=== PATIENT | female | born 1950 | race Caucasian/White ===

== ENCOUNTER 2023-05-03 19:09 | Inpatient (IN) ==
[2023-05-03] MEDS ORDERED: IOPAMIDOL 100 ML BOTTLE IV ONE (19:10)
[2023-05-03] MEDS ORDERED: VANCOMYCIN PER PHARMACY IV ONE (19:46)
[2023-05-03] MEDS ORDERED: cefTRIAXone 1 GM VIAL IV ONE (19:46)
[2023-05-03] MEDS ORDERED: 0.9 % SODIUM CHLORIDE 1,000 ML IV ONE (19:48)
[2023-05-03] MEDS ORDERED: ACETAMINOPHEN 500 MG TABLET PO ONE ×2 (19:48→23:03)
[2023-05-03] MEDS ORDERED: VANCOMYCIN 2,000 MG in 0.9 % SODIUM CHLORIDE 500 ML IV ONE (20:15)
[2023-05-03 20:56] LABS: Basophils # (Auto) 0.02 K/mcL (0.00-0.30); Basophils % (Auto) 0.2 % (0.0-2.0); Eosinophils % (Auto) 2.2 % (0.0-7.0); Hematocrit 32.4 % (34.1-44.9); Lymphocytes # (Auto) 1.06 K/mcL (1.50-4.80); Lymphocytes % (Auto) 11.4 % (15.5-49.0); Mean Cell Volume 99.4 fL (80.0-100.0); Mean Corpuscular HGB Conc 30.9 g/dL (31.0-36.0); Mean Platelet Volume 12.2 fL (8.8-12.5); Monocytes # (Auto) 0.91 K/mcL (0.10-0.90); Monocytes % (Auto) 9.8 % (1.0-12.0); Platelet Count 217 K/mcL (140-440); RBC 3.26 M/mcL (3.59-5.38); Red Cell Distribution Width 14.5 % (11.5-14.5); WBC 9.3 K/mcL (4.5-11.0)
[2023-05-03 21:23] LABS: ALT/SGPT < 5 U/L (<40); AST/SGOT 7 U/L (<32); Albumin 2.9 gm/dL (3.2-5.2); Alkaline Phosphatase 76 U/L (39-117); Bilirubin,Total 0.5 mg/dL (0.1-1.0); Blood Urea Nitrogen 17 mg/dL (8-23); Calcium 8.8 mg/dL (8.6-10.4); Carbon Dioxide 29 mmol/L (22-30); Chloride 102 mmol/L (96-108); Globulin 2.9 gm/dL (2.2-3.7); Glomerular Filtration Rate 34; Glucose 125 mg/dL (70-105)
[2023-05-04] MEDS ORDERED: morphine 4 MG/ML VIAL IV ONE ×2 (01:49→08:18)
[2023-05-04] MEDS ORDERED: ONDANSETRON 4 MG/2 ML VIAL IV ONE (01:49)
[2023-05-04] MEDS ORDERED: VANCOMYCIN PER PHARMACY IV ONE ×2 (07:40→09:38)
[2023-05-04] MEDS ORDERED: cefTRIAXone 1 GM VIAL IV ONE (07:40)
[2023-05-04 08:56] LABS: Basophils # (Auto) 0.02 K/mcL (0.00-0.30); Basophils % (Auto) 0.2 % (0.0-2.0); Eosinophils # (Auto) 0.22 K/mcL (0.00-0.70); Eosinophils % (Auto) 2.7 % (0.0-7.0); Hematocrit 30.1 % (34.1-44.9); Hemoglobin 9.3 g/dL (11.2-15.7); Lymphocytes % (Auto) 17.3 % (15.5-49.0); Mean Corpuscular HGB Conc 30.9 g/dL (31.0-36.0); Mean Platelet Volume 12.2 fL (8.8-12.5); Monocytes # (Auto) 0.81 K/mcL (0.10-0.90); Neutrophils % (Auto) 69.4 % (38.0-78.0); Platelet Count 213 K/mcL (140-440); RBC 2.98 M/mcL (3.59-5.38); Red Cell Distribution Width 14.6 % (11.5-14.5); WBC 8.1 K/mcL (4.5-11.0)
[2023-05-04 09:25] LABS: ALT/SGPT < 5 U/L (<40); AST/SGOT 7 U/L (<32); Albumin 2.7 gm/dL (3.2-5.2); Alkaline Phosphatase 68 U/L (39-117); Anion Gap 0 (8.0-16.0); Bilirubin,Total 0.6 mg/dL (0.1-1.0); Blood Urea Nitrogen 18 mg/dL (8-23); Calcium 8.5 mg/dL (8.6-10.4); Carbon Dioxide 33 mmol/L (22-30); Chloride 107 mmol/L (96-108); Globulin 2.6 gm/dL (2.2-3.7); Glomerular Filtration Rate 34; Glucose 88 mg/dL (70-105)
[2023-05-04] MEDS ORDERED: HYDROmorphone 1 MG/ML SYRINGE IV PRN (09:33)
[2023-05-04] MEDS: cefTRIAXone 1 GM VIAL IV ONE ×2 (11:28→11:56)
[2023-05-04] MEDS: cefTRIAXone 2 GM in DEXTROSE 5% IN WATER 50 ML IV SCH (11:39)
[2023-05-04] MEDS ORDERED: cefTRIAXone 2 GM VIAL ONE (11:40)
[2023-05-04] MEDS ORDERED: VANCOMYCIN PER PHARMACY IV SCH (11:45)
[2023-05-04] MEDS: LACTATED RINGERS 1,000 ML IV SCH ×2 (11:56→23:18)
[2023-05-04] MEDS: 0.9 % SODIUM CHLORIDE 10 ML SYRINGE IV SCH ×2 (13:08→23:18)
[2023-05-04] MEDS: ONDANSETRON 4 MG/2 ML VIAL IV PRN (16:42)
[2023-05-04] MEDS: VANCOMYCIN 1,500 MG in 0.9 % SODIUM CHLORIDE 500 ML IV SCH (17:56)
[2023-05-04] MEDS: morphine 4 MG/ML VIAL IV PRN (20:04)
[2023-05-04] MEDS: DOCUSATE SODIUM 100 MG CAPSULE PO SCH (20:06)
[2023-05-04] MEDS: SENNOSIDES 1 TABLET PO SCH (20:06)
[2023-05-05] MEDS: morphine 4 MG/ML VIAL IV PRN ×3 (04:24→17:58)
[2023-05-05] MEDS: 0.9 % SODIUM CHLORIDE 10 ML SYRINGE IV SCH ×3 (04:39→21:41)
[2023-05-05 06:27] LABS: Basophils # (Auto) 0.03 K/mcL (0.00-0.30); Basophils % (Auto) 0.3 % (0.0-2.0); Eosinophils # (Auto) 0.34 K/mcL (0.00-0.70); Eosinophils % (Auto) 3.7 % (0.0-7.0); Hematocrit 31.6 % (34.1-44.9); Hemoglobin 9.4 g/dL (11.2-15.7); Lymphocytes # (Auto) 1.25 K/mcL (1.50-4.80); Lymphocytes % (Auto) 13.6 % (15.5-49.0); Mean Cell Volume 102.9 fL (80.0-100.0); Mean Corpuscular HGB Conc 29.7 g/dL (31.0-36.0); Monocytes # (Auto) 0.86 K/mcL (0.10-0.90); Monocytes % (Auto) 9.3 % (1.0-12.0); Neutrophils % (Auto) 72.8 % (38.0-78.0); Platelet Count 243 K/mcL (140-440); RBC 3.07 M/mcL (3.59-5.38); Red Cell Distribution Width 14.5 % (11.5-14.5); WBC 9.2 K/mcL (4.5-11.0)
[2023-05-05 06:56] LABS: ALT/SGPT < 5 U/L (<40); AST/SGOT 8 U/L (<32); Albumin 2.9 gm/dL (3.2-5.2); Albumin/Globulin Ratio 1.1 (1.0-2.3); Alkaline Phosphatase 72 U/L (39-117); Bilirubin,Direct < 0.2 mg/dL (0-0.3); Bilirubin,Total 0.3 mg/dL (0.1-1.0); Blood Urea Nitrogen 17 mg/dL (8-23); Calcium 8.9 mg/dL (8.6-10.4); Carbon Dioxide 30 mmol/L (22-30); Chloride 104 mmol/L (96-108); Globulin 2.7 gm/dL (2.2-3.7); Glomerular Filtration Rate 37; Glucose 95 mg/dL (70-105); Lactate Dehydrogenase 189 U/L (135-225); Phosphorous 3.8 mg/dL (2.5-4.5); Triglycerides 99 mg/dL (<150); Uric Acid 6.2 mg/dL (2.5-8.0)
[2023-05-05] MEDS: DOCUSATE SODIUM 100 MG CAPSULE PO SCH ×2 (08:40→21:41)
[2023-05-05] MEDS: cefTRIAXone 2 GM in DEXTROSE 5% IN WATER 50 ML IV SCH (11:02)
[2023-05-05] MEDS ORDERED: SCOPOLAMINE 1 PATCH PATCH TOPICAL ONE (12:39)
[2023-05-05] MEDS ORDERED: fentaNYL 100 MCG/2 ML VIAL IV ONE (12:46)
[2023-05-05] MEDS ORDERED: PROPOFOL 200 MG/20 ML VIAL IV ONE (12:46)
[2023-05-05] MEDS ORDERED: ONDANSETRON 4 MG/2 ML VIAL ONE (12:47)
[2023-05-05] MEDS ORDERED: SUGAMMADEX SODIUM 200 MG/2 ML VIAL IV ONE (12:47)
[2023-05-05] MEDS ORDERED: PHENYLephrine 1 MG/10 ML SYRINGE (ANEST) ONE (13:31)
[2023-05-05] MEDS ORDERED: SILVER SULFADIAZINE CREAM.TOP 25GM TOPICAL ONE (13:49)
[2023-05-05] MEDS ORDERED: NALOXONE HCL 0.4 MG/ML VIAL IV PRN (13:54)
[2023-05-05] MEDS ORDERED: ONDANSETRON 4 MG/2 ML VIAL IV PRN (13:54)
[2023-05-05] MEDS ORDERED: IPRATROPIUM/ALBUTEROL 3 ML AMPUL.NEB NEB PRN (13:54)
[2023-05-05] MEDS ORDERED: fentaNYL 100 MCG/2 ML VIAL IV PRN (13:54)
[2023-05-05] MEDS: morphine 2 MG/ML VIAL IV PRN ×4 (14:25→14:58)
[2023-05-05] MEDS: LACTATED RINGERS 1,000 ML IV SCH (14:29)
[2023-05-05] MEDS ORDERED: rOPINIRole 0.25 MG TABLET PO PRN (14:52)
[2023-05-05] MEDS ORDERED: CARVEDILOL 3.125 MG TABLET PO SCH (17:30)
[2023-05-05] MEDS: VANCOMYCIN 1,500 MG in 0.9 % SODIUM CHLORIDE 500 ML IV SCH (17:58)
[2023-05-05] MEDS: ONDANSETRON 4 MG/2 ML VIAL IV PRN (18:44)
[2023-05-05] MEDS ORDERED: FUROSEMIDE 20 MG TABLET PO SCH (21:00)
[2023-05-05] MEDS: SENNOSIDES 1 TABLET PO SCH (21:40)
[2023-05-05] MEDS: rOPINIRole 0.25 MG TABLET PO SCH (21:40)
[2023-05-06] MEDS: morphine 4 MG/ML VIAL IV PRN ×2 (01:21→14:51)
[2023-05-06] MEDS: LACTATED RINGERS 1,000 ML IV SCH ×2 (01:21→15:27)
[2023-05-06] MEDS ORDERED: ALBUMIN HUMAN 25 GM/100 ML BAG IV ONE ×2 (05:15→06:05)
[2023-05-06] MEDS ORDERED: 0.9 % SODIUM CHLORIDE 1,000 ML BAG IV ONE (05:17)
[2023-05-06] MEDS ORDERED: ALBUMIN HUMAN 50 ML IV ONE ×2 (05:24→05:26)
[2023-05-06] MEDS ORDERED: 0.9 % SODIUM CHLORIDE 1,000 ML BAG IV STA (05:33)
[2023-05-06] MEDS ORDERED: 0.9 % SODIUM CHLORIDE 1,000 ML IV ONE (05:38)
[2023-05-06] MEDS ORDERED: 0.9 % SODIUM CHLORIDE 250 ML IV SCH (06:00)
[2023-05-06 06:13] LABS: POC Calcium, Ionized 1.2 (1.16-1.32); POC Creatinine 2.3 (0.6-1.2); POC Potassium 5.2 (3.3-5.1)
[2023-05-06] MEDS: 0.9 % SODIUM CHLORIDE 10 ML SYRINGE IV SCH ×3 (07:08→20:07)
[2023-05-06] MEDS: OMEPRAZOLE 20 MG CAPSULE PO SCH (07:41)
[2023-05-06] MEDS: oxyCODONE IR 5 MG TABLET PO PRN ×3 (07:41→20:07)
[2023-05-06] MEDS: CHOLESTYRAMINE/ASPARTAME 4 GM POWD.PACK PO SCH (07:42)
[2023-05-06 07:51] LABS: Basophils # (Auto) 0.03 K/mcL (0.00-0.30); Basophils % (Auto) 0.4 % (0.0-2.0); Eosinophils # (Auto) 0.07 K/mcL (0.00-0.70); Eosinophils % (Auto) 0.9 % (0.0-7.0); Hematocrit 29.7 % (34.1-44.9); Lymphocytes # (Auto) 0.75 K/mcL (1.50-4.80); Lymphocytes % (Auto) 9.2 % (15.5-49.0); Mean Cell Volume 104.2 fL (80.0-100.0); Mean Corpuscular HGB Conc 29.6 g/dL (31.0-36.0); Mean Platelet Volume 11.8 fL (8.8-12.5); Monocytes # (Auto) 0.83 K/mcL (0.10-0.90); Monocytes % (Auto) 10.1 % (1.0-12.0); Neutrophils % (Auto) 78.7 % (38.0-78.0); Platelet Count 228 K/mcL (140-440); RBC 2.85 M/mcL (3.59-5.38); Red Cell Distribution Width 14.5 % (11.5-14.5); WBC 8.2 K/mcL (4.5-11.0)
[2023-05-06 07:53] LABS: ALT/SGPT 290 U/L (<40); AST/SGOT 543 U/L (<32); Albumin/Globulin Ratio 1.1 (1.0-2.3); Alkaline Phosphatase 94 U/L (39-117); Bilirubin,Direct < 0.2 mg/dL (0-0.3); Bilirubin,Total 0.3 mg/dL (0.1-1.0); Blood Urea Nitrogen 23 mg/dL (8-23); Calcium 8.7 mg/dL (8.6-10.4); Carbon Dioxide 28 mmol/L (22-30); Chloride 102 mmol/L (96-108); Globulin 2.7 gm/dL (2.2-3.7); Glomerular Filtration Rate 21; Glucose 118 mg/dL (70-105); Lactate Dehydrogenase > 1387 U/L (135-225); Phosphorous 4.6 mg/dL (2.5-4.5); Triglycerides 90 mg/dL (<150); Uric Acid 7.4 mg/dL (2.5-8.0)
[2023-05-06] MEDS ORDERED: amLODIPine 5 MG TABLET PO SCH (09:00)
[2023-05-06] MEDS ORDERED: SPIRONOLACTONE 25 MG TABLET PO SCH (09:00)
[2023-05-06 09:01] LABS: Hemoglobin 9.2 g/dL (11.2-15.7)
[2023-05-06] MEDS: VITAMIN D3 125 MCG TABLET PO SCH (09:40)
[2023-05-06] MEDS: PARoxetine 20 MG TABLET PO SCH (09:40)
[2023-05-06] MEDS: DOCUSATE SODIUM 100 MG CAPSULE PO SCH ×2 (09:40→20:07)
[2023-05-06] MEDS: ALLOPURINOL 100 MG TABLET PO SCH (09:40)
[2023-05-06] MEDS: ASPIRIN 81 MG TAB.CHEW PO SCH (09:40)
[2023-05-06] MEDS: LEVOTHYROXINE 100 MCG TABLET PO SCH (09:40)
[2023-05-06] MEDS ORDERED: cefTRIAXone 2 GM VIAL ONE (09:43)
[2023-05-06] MEDS: cefTRIAXone 2 GM in DEXTROSE 5% IN WATER 50 ML IV SCH (09:46)
[2023-05-06] MEDS: ALBUMIN HUMAN 25 GM/100 ML BAG IV SCH ×3 (11:35→18:00)
[2023-05-06] MEDS: SENNOSIDES 1 TABLET PO SCH (20:07)
[2023-05-06] MEDS: rOPINIRole 0.25 MG TABLET PO SCH (20:07)
[2023-05-07] MEDS: morphine 4 MG/ML VIAL IV PRN (02:28)
[2023-05-07] MEDS: LACTATED RINGERS 1,000 ML IV SCH (04:02)
[2023-05-07] MEDS ORDERED: FUROSEMIDE 20 MG/2 ML VIAL IV STA (04:39)
[2023-05-07] MEDS ORDERED: FUROSEMIDE 20 MG/2 ML VIAL IV ONE (04:49)
[2023-05-07] MEDS: 0.9 % SODIUM CHLORIDE 10 ML SYRINGE IV SCH ×3 (05:27→22:38)
[2023-05-07 06:49] LABS: Basophils # (Auto) 0.03 K/mcL (0.00-0.30); Basophils % (Auto) 0.3 % (0.0-2.0); Eosinophils # (Auto) 0.18 K/mcL (0.00-0.70); Eosinophils % (Auto) 2.1 % (0.0-7.0); Hematocrit 29.2 % (34.1-44.9); Hemoglobin 8.6 g/dL (11.2-15.7); Lymphocytes # (Auto) 1.09 K/mcL (1.50-4.80); Lymphocytes % (Auto) 12.6 % (15.5-49.0); Mean Cell Volume 106.2 fL (80.0-100.0); Mean Corpuscular HGB Conc 29.5 g/dL (31.0-36.0); Mean Platelet Volume 11.6 fL (8.8-12.5); Monocytes # (Auto) 0.81 K/mcL (0.10-0.90); Monocytes % (Auto) 9.3 % (1.0-12.0); Neutrophils % (Auto) 74.2 % (38.0-78.0); Platelet Count 186 K/mcL (140-440); RBC 2.75 M/mcL (3.59-5.38); Red Cell Distribution Width 14.5 % (11.5-14.5); WBC 8.7 K/mcL (4.5-11.0)
[2023-05-07 07:06] LABS: Vancomycin,Random 23.1 ug/mL
[2023-05-07 07:07] LABS: ALT/SGPT 193 U/L (<40); AST/SGOT 259 U/L (<32); Albumin 3.6 gm/dL (3.2-5.2); Albumin/Globulin Ratio 1.4 (1.0-2.3); Alkaline Phosphatase 78 U/L (39-117); Bilirubin,Direct < 0.2 mg/dL (0-0.3); Bilirubin,Total 0.2 mg/dL (0.1-1.0); Blood Urea Nitrogen 27 mg/dL (8-23); Carbon Dioxide 24 mmol/L (22-30); Chloride 105 mmol/L (96-108); Globulin 2.5 gm/dL (2.2-3.7); Glomerular Filtration Rate 15; Glucose 90 mg/dL (70-105); Lactate Dehydrogenase 277 U/L (135-225); Triglycerides 91 mg/dL (<150); Uric Acid 8.4 mg/dL (2.5-8.0)
[2023-05-07] MEDS ORDERED: FUROSEMIDE 40 MG/4 ML VIAL IV ONE (10:37)
[2023-05-07] MEDS: VITAMIN D3 125 MCG TABLET PO SCH (10:47)
[2023-05-07] MEDS: DOCUSATE SODIUM 100 MG CAPSULE PO SCH ×2 (10:47→22:37)
[2023-05-07] MEDS: OMEPRAZOLE 20 MG CAPSULE PO SCH (10:47)
[2023-05-07] MEDS: ASPIRIN 81 MG TAB.CHEW PO SCH (10:47)
[2023-05-07] MEDS: LEVOTHYROXINE 100 MCG TABLET PO SCH (10:47)
[2023-05-07] MEDS: PARoxetine 20 MG TABLET PO SCH (10:48)
[2023-05-07] MEDS: ALLOPURINOL 100 MG TABLET PO SCH (10:48)
[2023-05-07] MEDS: cefTRIAXone 2 GM in DEXTROSE 5% IN WATER 50 ML IV SCH (11:04)
[2023-05-07] MEDS: CHOLESTYRAMINE/ASPARTAME 4 GM POWD.PACK PO SCH ×2 (11:04→17:32)
[2023-05-07] MEDS ORDERED: SILVER SULFADIAZINE CREAM.TOP 25GM TOPICAL ONE (13:12)
[2023-05-07 21:57] LABS: Appearance,Urine HAZY (Clear); Bilirubin,Urine Negative (Negative); Color,Urine YELLOW; Culture Indicated,Urine yes; Glucose,Urine (UA) Negative (Negative); Ketones,Urine Negative (Negative); Leukocyte Esterase,Urine 75 /uL (Negative); Mucus,Urine FEW /hpf; Nitrate,Urine Negative (Negative); Protein,Urine 30 mg/dL (Negative); Specific Gravity,Urine 1.008 (1.000-1.035); Urine Budding Yeast MOD /hpf; Urine Hyaline Cast 18 /lph (0-2); Urine RBC 5 /hpf (0-3); Urine Squamous Epithelial Cell 1 /hpf (0-4); Urine WBC 31 /hpf (0-4); Urobilinogen,Urine Negative
[2023-05-07] MEDS: SENNOSIDES 1 TABLET PO SCH (22:37)
[2023-05-07] MEDS: rOPINIRole 0.25 MG TABLET PO SCH (22:38)
[2023-05-08] MEDS: oxyCODONE IR 5 MG TABLET PO PRN (01:42)
[2023-05-08 07:56] LABS: Vancomycin,Random 19.8 ug/mL
[2023-05-08] MEDS: CHOLESTYRAMINE/ASPARTAME 4 GM POWD.PACK PO SCH (09:29)
[2023-05-08 09:36] LABS: Basophils # (Auto) 0.04 K/mcL (0.00-0.30); Basophils % (Auto) 0.4 % (0.0-2.0); Eosinophils % (Auto) 2.2 % (0.0-7.0); Hematocrit 28.9 % (34.1-44.9); Hemoglobin 8.5 g/dL (11.2-15.7); Lymphocytes % (Auto) 10.9 % (15.5-49.0); Mean Cell Volume 106.3 fL (80.0-100.0); Mean Corpuscular HGB Conc 29.4 g/dL (31.0-36.0); Mean Platelet Volume 11.8 fL (8.8-12.5); Monocytes % (Auto) 8.7 % (1.0-12.0); Neutrophils % (Auto) 76.9 % (38.0-78.0); Platelet Count 198 K/mcL (140-440); RBC 2.72 M/mcL (3.59-5.38); Red Cell Distribution Width 14.4 % (11.5-14.5); WBC 9.2 K/mcL (4.5-11.0)
[2023-05-08] MEDS: cefTRIAXone 2 GM in DEXTROSE 5% IN WATER 50 ML IV SCH (10:33)
[2023-05-08] MEDS: 0.9 % SODIUM CHLORIDE 10 ML SYRINGE IV SCH ×3 (10:34→22:08)
[2023-05-08] MEDS: LEVOTHYROXINE 100 MCG TABLET PO SCH (10:34)
[2023-05-08] MEDS: ALLOPURINOL 100 MG TABLET PO SCH (10:34)
[2023-05-08] MEDS: DOCUSATE SODIUM 100 MG CAPSULE PO SCH ×2 (10:34→22:07)
[2023-05-08] MEDS: ASPIRIN 81 MG TAB.CHEW PO SCH (10:34)
[2023-05-08] MEDS: OMEPRAZOLE 20 MG CAPSULE PO SCH (10:34)
[2023-05-08] MEDS: VITAMIN D3 125 MCG TABLET PO SCH (10:35)
[2023-05-08] MEDS: PARoxetine 20 MG TABLET PO SCH (10:35)
[2023-05-08 11:09] LABS: ALT/SGPT 138 U/L (<40); AST/SGOT 77 U/L (<32); Albumin 3.5 gm/dL (3.2-5.2); Albumin/Globulin Ratio 1.4 (1.0-2.3); Alkaline Phosphatase 77 U/L (39-117); Bilirubin,Direct < 0.2 mg/dL (0-0.3); Bilirubin,Total 0.2 mg/dL (0.1-1.0); Blood Urea Nitrogen 30 mg/dL (8-23); Carbon Dioxide 24 mmol/L (22-30); Chloride 103 mmol/L (96-108); Globulin 2.5 gm/dL (2.2-3.7); Glomerular Filtration Rate 16; Glucose 86 mg/dL (70-105); Lactate Dehydrogenase 195 U/L (135-225); Phosphorous 4.9 mg/dL (2.5-4.5); Triglycerides 96 mg/dL (<150); Uric Acid 8.4 mg/dL (2.5-8.0)
[2023-05-08] MEDS: SENNOSIDES 1 TABLET PO SCH (22:07)
[2023-05-08] MEDS: rOPINIRole 0.25 MG TABLET PO SCH (22:07)
[2023-05-09 06:58] LABS: Basophils # (Auto) 0.02 K/mcL (0.00-0.30); Basophils % (Auto) 0.2 % (0.0-2.0); Eosinophils # (Auto) 0.16 K/mcL (0.00-0.70); Hematocrit 28.7 % (34.1-44.9); Hemoglobin 8.6 g/dL (11.2-15.7); Lymphocytes # (Auto) 0.88 K/mcL (1.50-4.80); Lymphocytes % (Auto) 10.9 % (15.5-49.0); Mean Cell Volume 104.4 fL (80.0-100.0); Mean Platelet Volume 11.5 fL (8.8-12.5); Monocytes % (Auto) 8.7 % (1.0-12.0); Neutrophils % (Auto) 77.3 % (38.0-78.0); Platelet Count 210 K/mcL (140-440); RBC 2.75 M/mcL (3.59-5.38); Red Cell Distribution Width 14.2 % (11.5-14.5)
[2023-05-09] MEDS: CHOLESTYRAMINE/ASPARTAME 4 GM POWD.PACK PO SCH (07:05)
[2023-05-09 07:17] LABS: ALT/SGPT 92 U/L (<40); AST/SGOT 32 U/L (<32); Albumin 3.2 gm/dL (3.2-5.2); Albumin/Globulin Ratio 1.3 (1.0-2.3); Alkaline Phosphatase 76 U/L (39-117); Bilirubin,Direct < 0.2 mg/dL (0-0.3); Bilirubin,Total 0.3 mg/dL (0.1-1.0); Blood Urea Nitrogen 32 mg/dL (8-23); Calcium 9.2 mg/dL (8.6-10.4); Carbon Dioxide 24 mmol/L (22-30); Chloride 105 mmol/L (96-108); Globulin 2.5 gm/dL (2.2-3.7); Glomerular Filtration Rate 18; Glucose 85 mg/dL (70-105); Lactate Dehydrogenase 152 U/L (135-225); Phosphorous 3.9 mg/dL (2.5-4.5); Triglycerides 91 mg/dL (<150); Uric Acid 8.6 mg/dL (2.5-8.0)
[2023-05-09] MEDS: OMEPRAZOLE 20 MG CAPSULE PO SCH (07:33)
[2023-05-09] MEDS: 0.9 % SODIUM CHLORIDE 10 ML SYRINGE IV SCH ×3 (07:33→19:17)
[2023-05-09] MEDS: LEVOTHYROXINE 100 MCG TABLET PO SCH (07:35)
[2023-05-09] MEDS: ACETAMINOPHEN 1,000 MG/100 ML BAG IV PRN ×2 (09:23→19:14)
[2023-05-09] MEDS: ALLOPURINOL 100 MG TABLET PO SCH (09:25)
[2023-05-09] MEDS: DOCUSATE SODIUM 100 MG CAPSULE PO SCH ×2 (09:26→19:38)
[2023-05-09] MEDS: ASPIRIN 81 MG TAB.CHEW PO SCH (09:26)
[2023-05-09] MEDS: VITAMIN D3 125 MCG TABLET PO SCH (09:27)
[2023-05-09] MEDS: PARoxetine 20 MG TABLET PO SCH (09:27)
[2023-05-09] MEDS: cefTRIAXone 2 GM in DEXTROSE 5% IN WATER 50 ML IV SCH (10:11)
[2023-05-09] MEDS: ONDANSETRON 4 MG/2 ML VIAL IV PRN (19:22)
[2023-05-09] MEDS: SENNOSIDES 1 TABLET PO SCH (19:39)
[2023-05-09] MEDS: rOPINIRole 0.25 MG TABLET PO SCH (19:39)
[2023-05-10] MEDS ORDERED: fentaNYL 100 MCG/2 ML VIAL IV ONE ×2 (00:31→05:24)
[2023-05-10] MEDS: 0.9 % SODIUM CHLORIDE 10 ML SYRINGE IV SCH ×4 (00:36→21:20)
[2023-05-10] MEDS: ACETAMINOPHEN 1,000 MG/100 ML BAG IV PRN (04:22)
[2023-05-10] MEDS: fentaNYL 100 MCG/2 ML VIAL IV PRN ×3 (05:30→21:57)
[2023-05-10] MEDS: CHOLESTYRAMINE/ASPARTAME 4 GM POWD.PACK PO SCH (07:16)
[2023-05-10] MEDS: OMEPRAZOLE 20 MG CAPSULE PO SCH (07:16)
[2023-05-10 07:53] LABS: Basophils # (Auto) 0.03 K/mcL (0.00-0.30); Basophils % (Auto) 0.3 % (0.0-2.0); Eosinophils # (Auto) 0.24 K/mcL (0.00-0.70); Eosinophils % (Auto) 2.6 % (0.0-7.0); Hematocrit 28.6 % (34.1-44.9); Hemoglobin 8.8 g/dL (11.2-15.7); Lymphocytes # (Auto) 1.43 K/mcL (1.50-4.80); Lymphocytes % (Auto) 15.8 % (15.5-49.0); Mean Cell Volume 100.4 fL (80.0-100.0); Mean Corpuscular HGB Conc 30.8 g/dL (31.0-36.0); Mean Platelet Volume 11.6 fL (8.8-12.5); Monocytes # (Auto) 0.83 K/mcL (0.10-0.90); Monocytes % (Auto) 9.2 % (1.0-12.0); Neutrophils % (Auto) 71.4 % (38.0-78.0); Platelet Count 259 K/mcL (140-440); RBC 2.85 M/mcL (3.59-5.38); Red Cell Distribution Width 14.1 % (11.5-14.5); WBC 9.1 K/mcL (4.5-11.0)
[2023-05-10 08:26] LABS: ALT/SGPT 66 U/L (<40); AST/SGOT 17 U/L (<32); Albumin 3.4 gm/dL (3.2-5.2); Albumin/Globulin Ratio 1.4 (1.0-2.3); Alkaline Phosphatase 74 U/L (39-117); Bilirubin,Direct < 0.2 mg/dL (0-0.3); Bilirubin,Total 0.2 mg/dL (0.1-1.0); Blood Urea Nitrogen 35 mg/dL (8-23); Calcium 9.4 mg/dL (8.6-10.4); Carbon Dioxide 25 mmol/L (22-30); Chloride 103 mmol/L (96-108); Globulin 2.4 gm/dL (2.2-3.7); Glomerular Filtration Rate 20; Glucose 92 mg/dL (70-105); Lactate Dehydrogenase 204 U/L (135-225); Phosphorous 2.5 mg/dL (2.5-4.5); Triglycerides 99 mg/dL (<150); Uric Acid 8.5 mg/dL (2.5-8.0)
[2023-05-10] MEDS: LEVOTHYROXINE 100 MCG TABLET PO SCH (08:54)
[2023-05-10] MEDS: VITAMIN D3 125 MCG TABLET PO SCH (08:54)
[2023-05-10] MEDS: DOCUSATE SODIUM 100 MG CAPSULE PO SCH ×2 (08:54→21:19)
[2023-05-10] MEDS: PARoxetine 20 MG TABLET PO SCH (08:54)
[2023-05-10] MEDS: ALLOPURINOL 100 MG TABLET PO SCH (08:54)
[2023-05-10] MEDS: ASPIRIN 81 MG TAB.CHEW PO SCH (08:54)
[2023-05-10 09:01] LABS: Vancomycin,Random 13.7 ug/mL
[2023-05-10] MEDS: cefTRIAXone 2 GM in DEXTROSE 5% IN WATER 50 ML IV SCH (09:02)
[2023-05-10] MEDS: FUROSEMIDE 20 MG/2 ML VIAL IV SCH ×2 (09:02→17:51)
[2023-05-10] MEDS: rOPINIRole 0.25 MG TABLET PO SCH (21:19)
[2023-05-10] MEDS: SENNOSIDES 1 TABLET PO SCH (21:19)
[2023-05-11] MEDS: fentaNYL 100 MCG/2 ML VIAL IV PRN (03:07)
[2023-05-11] MEDS: 0.9 % SODIUM CHLORIDE 10 ML SYRINGE IV SCH (05:10)
[2023-05-11] MEDS: LEVOTHYROXINE 100 MCG TABLET PO SCH (07:38)
[2023-05-11] MEDS: FUROSEMIDE 20 MG/2 ML VIAL IV SCH (07:38)
[2023-05-11] MEDS: OMEPRAZOLE 20 MG CAPSULE PO SCH (07:39)
[2023-05-11] MEDS: CHOLESTYRAMINE/ASPARTAME 4 GM POWD.PACK PO SCH (08:25)
[2023-05-11] MEDS: PARoxetine 20 MG TABLET PO SCH (09:12)
[2023-05-11] MEDS: ALLOPURINOL 100 MG TABLET PO SCH (09:12)
[2023-05-11] MEDS: ASPIRIN 81 MG TAB.CHEW PO SCH (09:12)
[2023-05-11] MEDS: cefTRIAXone 2 GM in DEXTROSE 5% IN WATER 50 ML IV SCH (09:13)
[2023-05-11] MEDS: VITAMIN D3 125 MCG TABLET PO SCH (09:13)
[2023-05-11] MEDS: DOCUSATE SODIUM 100 MG CAPSULE PO SCH (09:13)
== END 2023-05-11 13:08 | DRG 579 ==
LOC: MEDSUR 19:09 → ED 19:09 → MEDSUR 05-04 09:57 → OBSVTOIN 05-04 09:59
PROVIDERS: ADMIT Family Medicine Adult Medicine; ATTEND Family Medicine Adult Medicine